=== PATIENT | female | born 1945 | race Caucasian/White ===

== ENCOUNTER → 2025-06-23 10:28 | Outpatient (REF) | payer MEDICARE, SELFPAY | LOC: PAVMRI 10:28 | PROVIDERS: ATTENDING PHYSICIAN Orthopaedic Surgery; FAMILY PHYSICIAN Family Medicine | DX: M54.16 Radiculopathy, lumbar region (principal); M16.12 Unilateral primary osteoarthritis, left hip | CPT/HCPCS: 73721 ==